=== PATIENT | male | born 1945 | race Caucasian/White ===

== ENCOUNTER → 2016-09-16 | Outpatient (CLI) | payer MEDICARE ==
[~2016-09-16] MED LIST: ASPEC325 PO; BIOTPOW17 PO; CALC1CHW PO; CHOL2000 PO; HYDR-5688 PO; MULTCAP33 PO; OMEG120013 PO; OXYSR10 PO
[2016-09-16 14:38] LABS: BASO % 0.3 %; BASO ABS # 0.02 K/uL (0-0.2); COMPLETE YES; EOS % 1.5 %; HEMATOCRIT 44.6 % (42-52); IG% 0.2 %; LYMPH % 28.3 %; LYMPH ABS # 1.74 K/uL (1.2-3.4); MEAN CELL VOLUME 89.2 fL (80-100); MEAN CORPUSCULAR HEMOGLOBIN 29.6 pg (25-34); MEAN CORPUSCULAR HGB CONC 33.2 g/dl (32-36); MEAN PLATELET VOLUME 10.2 fL (7.4-10.4); MONO % 6.7 %; PLATELET COUNT 217 K/uL (130-400); WHITE BLOOD COUNT 6.14 K/uL (4.8-10.8)
== END | disposition home or self-care (01) ==
LOC: C.LAB 12:29
DX: M25.552 Pain in left hip (principal)

== ENCOUNTER → 2016-09-23 | Outpatient (CLI) | payer MEDICARE, OTHER ==
--- NOTE | 2016-09-23 14:15 | DIAGNOSTIC IMAGING REPORT ---
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 COMPARISON STUDY: Pelvis and left hip radiographs August 07, 2014. TECHNIQUE: 26.1 mCi of technetium 99M MDP was injected IV at 10:20 AM on September 23, 2016. Flow and blood pool images were obtained following injection. 3 hour delayed phase imaging was performed. FINDINGS: No hyperemia is evident on this examination. Photopenic defect from the left hip arthroplasty is noted on the delayed phase images. No significant abnormal radiotracer uptake is identified. There is minimal uptake adjacent to the femoral component of the left hip arthroplasty. IMPRESSION: No hyperemia. Slight increased radiotracer uptake adjacent to the femoral component of the left hip arthroplasty. This is considered within normal limits. Loosening could appear similar although is considered less likely given the minimal degree of radiotracer uptake. Electronically signed by: Mac Bhandari M.D. 09/23/2016 2:13 PM Dictated Date/Time: 09/23/2016 2:11 PM
== END | disposition home or self-care (01) ==
LOC: C.NUCL 10:08
DX: M25.552 Pain in left hip (principal); Z96.642 Presence of left artificial hip joint